=== PATIENT | male | born 1935 | race Hispanic/Latino ===

== ENCOUNTER 2020-11-21 07:02 | Day surgery (SDC) | payer MEDICARE ==
--- NOTE | 2020-11-21 08:23 | Anesthesia Day of Surgery ---
Anesthesia Day of Surgery - Day of Surgery Patient Examined: Yes Patient H&P Reviewed: Yes Patient is NPO: Yes
[2020-11-21] MEDS ORDERED: LACTATED RINGERS 1,000 ML IV SCH (08:30)
--- NOTE | 2020-11-21 08:36 | Anesthesia Consultation ---
Anesthesia Consult and Med Hx Date of service: 11/21/20 - Airway Anesthetic Teeth Evaluation: Bridges ROM Head & Neck: Inadequate Mental/Hyoid Distance: Adequate Mallampati Class: Class III Intubation Access Assessment: Probably Good - Pre-Operative Health Status ASA Pre-Surgery Classification: ASA3 Proposed Anesthetic Plan: General - Pulmonary Hx Smoking: No Hx Respiratory Symptoms: No (Climbs stairs at home and can walk 20 minutes) Hx Sleep Apnea: No (MICHAEL PRE SCREEN LOW RISK) - Cardiovascular System Hx Hypertension: No (ECHO 2014) Hx Angina: No Hx Cardia Arrhythmia: Yes (AFib) - Central Nervous System Hx Neuromuscular Disorder: Yes (RLS. 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
[2020-11-21] MEDS ORDERED: ceFAZolin/Water 2 GM/20 ML 2 GM/20 ML SYRINGE IV ONE (08:56)
[2020-11-21] MEDS ORDERED: propofoL 200 MG/20 ML VIAL IV ONE (09:00)
[2020-11-21] MEDS ORDERED: dexAMETHasone 20 MG/5 ML VIAL ONE (09:00)
[2020-11-21] MEDS ORDERED: LIDOCAINE MPF (2%) 20 MG/1 ML VIAL 5 ML ONE (09:00)
[2020-11-21] MEDS ORDERED: HYDROmorphone 1 MG/1 ML INJ IV PRN ×2 (09:00)
[2020-11-21] MEDS ORDERED: ePHEDrine SULFATE 50 MG/1 ML INJ ONE (09:00)
[2020-11-21] MEDS ORDERED: fentaNYL 100 MCG/2 ML INJ ONE ×2 (09:00→09:31)
[2020-11-21] MEDS ORDERED: ONDANSETRON 4 MG/2 ML INJ ONE (09:00)
[2020-11-21] MEDS ORDERED: ceFAZolin/STERILE WATER 2 GM/20 ML SYRINGE IV NR (09:00)
[2020-11-21] MEDS ORDERED: ONDANSETRON 4 MG/2 ML INJ IV PRN (09:00)
[2020-11-21 09:34] LABS: INR 1.08 (0.87-1.13)
[2020-11-21 10:32] LABS: Partial Thromboplastin Time 30.8 Sec. (24.2-36.6)
[2020-11-21] MEDS ORDERED: MANNITOL/SORBITOL SOLUTION 3,000 ML IRRIG.SOLN IR ONE (10:32)
--- NOTE | 2020-11-21 10:32 | Post Operative Note ---
Pre-op diagnosis: Bladder tumor Post-op diagnosis: same Findings: Large right lateral wall bladder tumor and smaller left lateral bladder tumor Procedure: TURBT, large, > 5 cm, of two separate and distinct tumors Anesthesia: ROSALINDAA Surgeon: FELIX JIMENEZ Estimated blood loss: minimal Pathology: list (1. Urine for cytology 2. Left lateral wall tumor 3. right lateral wall tumor) Specimen disposition: to lab Condition: stable Disposition: PACU (Patient tolerated procedure well.)
[2020-11-21 12:54] VITALS: BP 114/55
--- NOTE | 2020-11-21 15:12 | Post Anesthesia Evaluation ---
- Post Anesthesia Evaluation Patient Participated: Yes Airway Patent: Yes Stable Respiratory Function: Yes Nausea/Vomiting: No Temp > 96.8F: Yes Pain Manageable: Yes Adequeate Hydration: Yes Anesthesia Complications: No Block Receding Appropriately: Not Applicable Patient on Ventilator: No
--- NOTE | 2020-11-29 17:21 | Operative Report ---
DATE OF SURGERY: 11/21/2020 PREOPERATIVE DIAGNOSES: 1. Gross hematuria. 2. Bladder tumor. POSTOPERATIVE DIAGNOSES: 1. Gross hematuria. 2. Bladder tumor. OPERATIVE PROCEDURE PERFORMED: Transurethral resection of bladder tumor, large, greater than 5 cm, dominant tumor on the left trigone with a tumor on the right lateral wall. ATTENDING: Magdi Ojeda MD ANESTHESIA: General. ESTIMATED BLOOD LOSS: 50 mL. SPECIMENS: 1. Urine for cytology. 2. Bladder tumor, left trigone. 3. Bladder tumor, right lateral wall. DRAINS: A Faulkner catheter. COMPLICATIONS: None. INDICATIONS FOR PROCEDURE: The patient is an 85-year-old man who presented with gross hematuria. Evaluation revealed a bladder tumor. He was brought to the operating room for transurethral resection of the bladder tumor. DESCRIPTION OF PROCEDURE: After induction of suitable anesthesia, the patient was positioned and prepared in the dorsal lithotomy position. A resectoscope was used to enter the bladder under direct visualization. The patient did have a large prostate. He had 2 tumors in the bladder. Both of them were large. Both of them were greater than 5 cm. There was a tumor at the left trigone/lateral wall that was near the left ureteral orifice. This tumor was resected carefully and completely. The tumor bed was fulgurated copiously and carefully. It was hemostatic at the completion. There was also a tumor on the right lateral wall, which was also resected completely. Hemostasis was also achieved on the right lateral wall tumor bed. All the tumor specimen was retrieved removed and passed off to pathology for review. The resection beds were carefully inspected after fulguration and they were hemostatic. The bladder was then emptied and the scope was removed. A Faulkner catheter was placed. The patient was then awakened from anesthesia and transported to the recovery room in stable condition. He tolerated the procedure well. He will return in the office in 1-2 days for Faulkner catheter removal. He will return after that for pathology review and discussion of next steps. TID: [id number] RECEIPT: [id number] HAMILTON/FABIAN
== END 2020-11-21 12:10 | disposition home or self-care (01) ==
LOC: OR 07:02
PROVIDERS: ATTEND Urology
DX: D41.4 Neoplasm of uncertain behavior of bladder (principal); E11.9 Type 2 diabetes mellitus without complications; E03.9 Hypothyroidism, unspecified; I48.91 Unspecified atrial fibrillation; Z79.899 Other long term (current) drug therapy; Z98.890 Other specified postprocedural states
CPT/HCPCS: 36415; 52240; 82962; 85610; 85730; 88112; 88305; J0690; J1100; J2405; J2704; J3010; J7120; 88307

== ENCOUNTER 2021-01-30 07:34 | Day surgery (SDC) | payer MEDICARE ==
[2021-01-28 10:12] LABS: Hematocrit 38.9 % (35.5-45.6); Hemoglobin 13.2 gm/dl (11.8-15.2); Mean Corpuscular HGB Conc 34 % (32-34); Mean Corpuscular Volume 95 fl (84-94); Platelet Count 157 K/mm3 (140-440); Red Blood Count 4.11 M/mm3 (3.65-5.03); Red Cell Distribution Width 14.3 % (13.2-15.2)
[2021-01-28 10:31] LABS: Alanine Aminotransferase 16 units/L (7-56); Albumin 4.2 g/dL (3.9-5); BUN/Creatinine Ratio 19; Blood Urea Nitrogen 19 mg/dL (9-20); Calcium 9.7 mg/dL (8.4-10.2); Hemolysis Index 4
--- NOTE | 2021-01-28 15:52 | Anesthesia Consultation ---
Anesthesia Consult and Med Hx Date of service: 01/30/21 - Airway Anesthetic Teeth Evaluation: Bridges ROM Head & Neck: Adequate Mental/Hyoid Distance: Adequate Mallampati Class: Class III Intubation Access Assessment: Probably Good - Pre-Operative Health Status ASA Pre-Surgery Classification: ASA3 Proposed Anesthetic Plan: General - Pulmonary Hx Smoking: No Hx Respiratory Symptoms: No (Climbs stairs at home and can walk 20 minutes) Hx Sleep Apnea: No (MICHAEL PRE SCREEN HIGH RISK) - Cardiovascular System Hx Hypertension: No Hx Angina: No Hx Cardia Arrhythmia: Yes (AFib. Self d/c'd Xarelto because of bleeding. I asked them to contact cardi) - Central Nervous System Hx Neuromuscular Disorder: Yes (RLS. 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
--- NOTE | 2021-01-30 08:59 | Anesthesia Day of Surgery ---
Anesthesia Day of Surgery - Day of Surgery Patient Examined: Yes Patient H&P Reviewed: Yes Patient is NPO: Yes
[2021-01-30] MEDS ORDERED: LACTATED RINGERS 1,000 ML IV SCH (09:00)
[2021-01-30] MEDS ORDERED: ONDANSETRON 4 MG/2 ML INJ IV PRN (09:00)
[2021-01-30] MEDS ORDERED: GENTAMICIN/NS 80 MG/100 ML 100 ML IV SCH (09:00)
[2021-01-30] MEDS ORDERED: HYDROmorphone 1 MG/1 ML INJ IV PRN ×2 (09:00)
[2021-01-30] MEDS ORDERED: ceFAZolin/STERILE WATER 2 GM/20 ML SYRINGE IV NR (09:00)
[2021-01-30] MEDS ORDERED: ceFAZolin/Water 2 GM/20 ML 2 GM/20 ML SYRINGE IV ONE (09:03)
[2021-01-30] MEDS ORDERED: GENTAMICIN/NS 80 MG/100 ML 100 ML IV ONE (09:16)
[2021-01-30] MEDS ORDERED: LIDOCAINE 2% UROJECT 10 ML JELLY ONE (09:41)
[2021-01-30] MEDS ORDERED: WATER FOR IRRIG STERILE 2000 ML IR ONE (10:29)
[2021-01-30] MEDS ORDERED: ONDANSETRON 4 MG/2 ML INJ ONE (10:52)
--- NOTE | 2021-01-30 12:23 | Operative Report ---
DATE OF SURGERY: 01/30/2021 PREOPERATIVE DIAGNOSES: 1. Urinary retention requiring Faulkner catheterization. 2. Indwelling left double-J stent secondary to bladder cancer. POSTOPERATIVE DIAGNOSES: 1. Urinary retention requiring Faulkner catheterization. 2. Indwelling left double-J stent secondary to bladder cancer. OPERATIVE PROCEDURES: 1. Cystoscopy, left double-J stent removal. 2. Rezum procedure. ATTENDING: Magdi Ojeda MD WELDER OXYHYDROGEN: None. ANESTHESIA: General. ESTIMATED BLOOD LOSS: 20 mL. SPECIMENS: Left double-J stent for gross only. COMPLICATIONS: None. DRAINS: A 20-Upper Sorbian Faulkner catheter. INDICATIONS FOR PROCEDURE: The patient is an 86-year-old man with a history of bladder cancer, status post tumor resection. He had a left double-J stent placed during tumor resection a couple of months ago to protect the left ureter. Also, the patient has been in urinary retention since his transurethral resection of the bladder tumor. He has failed multiple void trials and would like to undergo outlet reduction, so that he could be free of a catheter. He presents today for both procedures. DESCRIPTION OF PROCEDURE IN DETAIL: After the induction of suitable anesthesia and proper positioning in preparation of the dorsal lithotomy position, a cystoscope was used to enter the bladder under direct visualization. The left double-J stent was seen emanating from the left ureteral orifice and it was grabbed with a flexible grasper and pulled out per urethra intact. The cystoscope was then used to reexamine the bladder and there were no obvious tumors. The patient had an enlarged prostate, specifically lateral lobe hypertrophy. His median lobe was nonobstructive. At this point, the cystoscope was then substituted for the Rezum device. We were able to navigate the Rezum device under direct visualization into the bladder. We then measured the prostate, and it was approximately 2 cm. We decided to do 3 treatments on each lateral lobe in a staggered format. Two treatments were lower and one treatment was higher, so that we could have maximal steam delivery to the lateral lobe for outlet reduction. This was performed on the right and then the left side. The 3 treatments were performed per side. The treatments were uneventful and there was no bleeding. Once complete, the outlet was reexamined to ensure that we had good coverage, which there was. The bladder was clear. The device was removed and a Faulkner catheter was placed. The patient was then awakened from anesthesia and transported to recovery room in stable condition. He tolerated the procedure well. He should return in approximately 1 week for Faulkner catheter removal. TID: [id number] RECEIPT: [id number] YAMIL
[2021-01-30 20:02] VITALS: BP 118/58
== END 2021-01-30 12:30 | disposition home or self-care (01) ==
LOC: OR 07:34
PROVIDERS: ATTEND Urology
DX: R33.9 Retention of urine, unspecified (principal); Z46.6 Encounter for fitting and adjustment of urinary device; Z20.822 Contact with and (suspected) exposure to COVID-19; I48.91 Unspecified atrial fibrillation; G25.81 Restless legs syndrome; E03.9 Hypothyroidism, unspecified; Z86.73 Personal history of transient ischemic attack (TIA), and cerebral infarction without residual deficits; Z79.899 Other long term (current) drug therapy; Z98.890 Other specified postprocedural states
CPT/HCPCS: 36415; 52310; 53854; 80053; 82962; 84132; 85027; 86850; 86900; 86901; A4217; J0690; J1580; J2405; J2704; J7120; U0003

== ENCOUNTER 2021-08-21 06:58 | Day surgery (SDC) | payer MEDICARE ==
[2021-08-15 11:59] LABS: Hematocrit 40.3 % (35.5-45.6); Hemoglobin 13.5 gm/dl (11.8-15.2); Mean Corpuscular HGB Conc 34 % (32-34); Mean Corpuscular Volume 92 fl (84-94); Platelet Count 112 K/mm3 (140-440); Red Blood Count 4.41 M/mm3 (3.65-5.03); Red Cell Distribution Width 15.6 % (13.2-15.2)
[2021-08-15 12:26] LABS: Alanine Aminotransferase 22 units/L (7-56); Albumin 4.4 g/dL (3.9-5); BUN/Creatinine Ratio 29; Blood Urea Nitrogen 26 mg/dL (9-20); Calcium 9.2 mg/dL (8.4-10.2); Hemolysis Index 14
--- NOTE | 2021-08-15 15:25 | Anesthesia Consultation ---
Anesthesia Consult and Med Hx Date of service: 08/21/21 - Pre-Operative Health Status ASA Pre-Surgery Classification: ASA3 Proposed Anesthetic Plan: General - Pulmonary Hx Smoking: No Hx Respiratory Symptoms: No Hx Sleep Apnea: No (MICHAEL PRE SCREEN HIGH RISK) - Cardiovascular System Hx Hypertension: No Hx Heart Attack/AMI: No Hx Angina: No Hx Cardia Arrhythmia: Yes (AFib. +Cardiac clearance) - Central Nervous System Hx Neuromuscular Disorder: Yes (RLS. 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
[~2021-08-21 06:58] MED LIST: ACETAMINOPHEN 325 MG TAB PO SCH; LACTATED RINGERS 1,000 ML IV SCH
--- NOTE | 2021-08-21 08:07 | Anesthesia Day of Surgery ---
Anesthesia Day of Surgery - Day of Surgery Patient Examined: Yes Patient H&P Reviewed: Yes Patient is NPO: Yes
[2021-08-21] MEDS ORDERED: HYDROmorphone 1 MG/1 ML INJ IV PRN (08:30)
[2021-08-21] MEDS ORDERED: HYDROcodone/ACETAMINOPHEN 5-325 MG TAB PO PRN (08:30)
[2021-08-21] MEDS ORDERED: ceFAZolin/STERILE WATER 2 GM/20 ML SYRINGE IV NR (08:30)
[2021-08-21] MEDS ORDERED: ceFAZolin/Water 2 GM/20 ML 2 GM/20 ML SYRINGE IV ONE (09:04)
[2021-08-21] MEDS ORDERED: LIDOCAINE MPF (2%) 20 MG/1 ML VIAL 5 ML ONE (09:58)
[2021-08-21] MEDS ORDERED: propofoL 200 MG/20 ML VIAL IV ONE (09:59)
[2021-08-21] MEDS ORDERED: SODIUM CHLORIDE 0.9% IRRIG SOLN 2000 ML IR ONE (10:20)
[2021-08-21 13:10] VITALS: BP 107/50
--- NOTE | 2021-08-21 13:44 | Operative Report ---
DATE OF SURGERY: 08/21/2021 TIME OF PROCEDURE: At approximately 9:45 a.m. PREOPERATIVE DIAGNOSES:t 1. History of bladder cancer. 2. Bladder tumor. 3. Bladder stones. POSTOPERATIVE DIAGNOSES: 1. History of bladder cancer. 2. Bladder tumor. 3. Bladder stones. OPERATIVE PROCEDURES: 1. Cystoscopy, fulguration of 5 small bladder lesions. 2. Cystolitholapaxy, less than 2.5 cm. ATTENDING: Magdi Ojeda MD ANESTHESIA: General. ESTIMATED BLOOD LOSS: 10 mL. DRAINS: A 20-Monegasque Faulkner catheter. SPECIMENS: Bladder stones. INDICATIONS FOR PROCEDURE: The patient is an 86-year-old man with a history of bladder cancer. On surveillance cystoscopy, he was found to have multiple small papillary lesions. He was also found to have multiple bladder stones. He was brought to the operating room for fulguration of these lesions and bladder stone removal. DESCRIPTION OF PROCEDURE: After the induction of suitable anesthesia and proper positioning and preparation in the dorsal lithotomy position, a resectoscope was used to enter the bladder under direct visualization. Five small papillary lesions, all less than 0.5 cm, were identified; and using the Bugbee electrode, these lesions were fulgurated extensively. There were no other lesions in the bladder. Attention was then turned to the bladder stones and these were removed with mainly irrigation and grasping of bigger stones with the Bugbee electrode. Some stones had to be removed one by one with the Bugbee electrode. However, most of the stones were able to be irrigated out with the Ellik. I examined the trigone multiple times to ensure that all stones were removed, which they were. Once complete, the resectoscope was removed and a Faulkner catheter was placed. It was attached to gravity drainage. The patient was then awakened from anesthesia and transported to the recovery room in stable condition. He tolerated the procedure well. The patient will come back in approximately 2 days for catheter removal. TID: [id number] RECEIPT: [id number] HAMILTON/KAATLINA/JOLENE
--- NOTE | 2021-08-21 14:25 | Post Anesthesia Evaluation ---
- Post Anesthesia Evaluation Patient Participated: Yes Airway Patent: Yes Stable Respiratory Function: Yes Nausea/Vomiting: No Temp > 96.8F: Yes Pain Manageable: Yes Adequeate Hydration: Yes Anesthesia Complications: No
== END 2021-08-21 12:35 | disposition home or self-care (01) ==
LOC: OR 06:58
PROVIDERS: ATTEND Urology
DX: N21.0 Calculus in bladder (principal); Z20.822 Contact with and (suspected) exposure to COVID-19; I42.9 Cardiomyopathy, unspecified; I48.91 Unspecified atrial fibrillation; E78.00 Pure hypercholesterolemia, unspecified; E11.9 Type 2 diabetes mellitus without complications; E03.9 Hypothyroidism, unspecified; Z85.51 Personal history of malignant neoplasm of bladder; Z98.41 Cataract extraction status, right eye; Z98.42 Cataract extraction status, left eye; Z98.890 Other specified postprocedural states; Z98.52 Vasectomy status; Z87.442 Personal history of urinary calculi; Z85.89 Personal history of malignant neoplasm of other organs and systems; Z86.73 Personal history of transient ischemic attack (TIA), and cerebral infarction without residual deficits
CPT/HCPCS: 36415; 52224; 80053; 82365; 82962; 85027; J0690; J2704; J7120; U0003